=== PATIENT | female | born 1935 | race Caucasian/White ===

== ENCOUNTER 2017-02-08 07:02 | Inpatient (IN) | payer OTHER ==
[~2017-02-08] VITALS: Ht 170.2 cm; Wt 81.6 kg
--- NOTE | ~2017-02-08 | EKG ---
[address] [place] [address] ELECTROCARDIOGRAM REPORT Name: JOAQUINA TERRAZAS Room #: [facility] Deangelo#: [id number] Admission: 02/08/17 Attend Phys: Discharge: Date of : 39 Report #: [id number] THIS REPORT FOR: //name// [facility] ED Test Date: 2017-02-08 Test Time: 07:22:38 Pat Name: JOAQUINA TERRAZAS Department: Room: Gender: F Software Quality Analyst: CLAUDETTE : 1935 Requested By: Rachna Morrell Order Number: [id number] MD: Ronal Cowart Measurements Intervals [place] Rate: 66 P: 72 SC: 164 QRS: 0 QRSD: 94 T: 35 QT: 436 QTc: 457 Interpretive Statements Sinus rhythm Atrial premature complex Nonspecific ST and T wave abnormality Compared to ECG 10/04/2006 01:06:06 Atrial premature complex(es) now present Premature ventricular complexes no longer present Electronically Signed On 02-08-2017 8:06:38 CDT by Ronal Cowart [email or web address] <ELECTRONICALLY SIGNED> By: Ronal Cowart MD, [facility] 02/08/1706 1 1 Ronal Cowart MD, [facility] /EPI
[~2017-02-08 07:02] MED LIST: ASPIRIN325 PO; FISH OIL 1,001000 M2 PO; LIPITOR 20 MG T20 M1 PO; MACROBID 100 M100 M1 PO; PHENERGAN 25 MG25 M1 PO; TOPROL XL100 MG PO; TUMS PO
[2017-02-08 07:04] VITALS: BP 117/45
[2017-02-08] MEDS ORDERED: NORVASC5 MG PO (07:22)
[2017-02-08] MEDS ORDERED: ASPIR 8181 MG PO (07:22)
[2017-02-08] MEDS ORDERED: LEVOTHYROXIN0.075 MG PO (07:23)
[2017-02-08] MEDS ORDERED: TOPROL XL25 MG PO (07:24)
[2017-02-08 07:30] LABS: ABSOLUTE NEUTROPHILS 9.8 thou/uL (1.4-8.2); BASOPHILS 0.4 % (0.0-2.0); EOSINOPHILS 0.4 % (0.0-3.0); HEMATOCRIT 37.4 % (37.0-47.0); HEMOGLOBIN 12.2 gm/dL (12.0-15.0); LYMPHOCYTES 14.7 % (24.0-44.0); MCHC 32.6 g/dL (28.0-37.0); MCV 94.9 fL (80.0-100.0); MONOCYTES 6.5 % (1.0-8.0); PLATELET COUNT 220 thou/uL (150-400); RBC 3.94 mil/uL (4.20-5.00); RDW 13.8 % (10.5-14.5); WBC 12.5 thou/uL (4.0-11.0)
[2017-02-08 07:31] LABS: MANUAL DIFF NO
[2017-02-08 07:39] LABS: CALCIUM 9.1 mg/dL (8.5-10.1); CREATININE 1.1 mg/dL (0.6-1.0); POTASSIUM 4.8 mmol/L (3.5-5.1)
[2017-02-08 07:43] LABS: DIRECT BILIRUBIN 0.1 mg/dL (<0.1-0.3); TOTAL BILIRUBIN 0.3 mg/dL (<0.1-1.0); TOTAL PROTEIN 6.5 g/dL (6.4-8.2)
[2017-02-08 07:52] LABS: APTT 20.9 Seconds (24.5-32.8); PROTIME 10.6 Seconds (9.3-11.4)
[2017-02-08 09:56] VITALS: BP 124/46
[2017-02-08 10:51] VITALS: BP 115/57
[2017-02-08 11:48] LABS: HEMATOCRIT 36.2 % (37.0-47.0)
[2017-02-08 18:15] VITALS: BP 130/54
[2017-02-08 19:15] VITALS: BP 111/55
[2017-02-08 20:11] LABS: URINE BILIRUBIN NEGATIVE (Negative); URINE BLOOD NEGATIVE (Negative); URINE COLOR YELLOW; URINE GLUCOSE-RANDOM* NEGATIVE (Negative); URINE KETONES NEGATIVE (Negative); URINE LEUKOCYTES-REFLEX NEGATIVE (Negative); URINE PROTEIN (DIPSTICK) NEGATIVE (Negative); URINE UROBILINOGEN 0.2 E.U./dl (0.2-1.0)
[2017-02-09 04:05] VITALS: BP 120/53
[2017-02-09 06:36] LABS: ABSOLUTE NEUTROPHILS 4.9 thou/uL (1.4-8.2); BASOPHILS 0.6 % (0.0-2.0); EOSINOPHILS 0.8 % (0.0-3.0); HEMATOCRIT 30.2 % (37.0-47.0); HEMOGLOBIN 10.1 gm/dL (12.0-15.0); LYMPHOCYTES 29.7 % (24.0-44.0); MCH 31.7 pg (26.0-34.0); MCHC 33.5 g/dL (28.0-37.0); MCV 94.4 fL (80.0-100.0); MONOCYTES 5.8 % (1.0-8.0); PLATELET COUNT 165 thou/uL (150-400); POLYS 63.1 % (36.0-66.0); RDW 13.4 % (10.5-14.5); WBC 7.8 thou/uL (4.0-11.0)
[2017-02-09 06:40] LABS: MANUAL DIFF NO
[2017-02-09 06:46] LABS: CALCIUM 8.8 mg/dL (8.5-10.1); POTASSIUM 4.2 mmol/L (3.5-5.1)
[2017-02-09 08:56] VITALS: BP 135/57
[2017-02-09 16:14] VITALS: BP 133/44
[2017-02-09 16:38] LABS: HEMATOCRIT 28.1 % (37.0-47.0); HEMOGLOBIN 9.4 gm/dL (12.0-15.0)
[2017-02-09 19:22] VITALS: BP 129/52
[2017-02-10 04:20] LABS: HEMATOCRIT 26.4 % (37.0-47.0); HEMOGLOBIN 9.1 gm/dL (12.0-15.0)
[2017-02-10 04:53] VITALS: BP 145/71
[2017-02-10 07:29] VITALS: BP 130/56
[2017-02-10 15:31] VITALS: BP 120/43
[2017-02-10 20:09] VITALS: BP 147/61
[2017-02-11 03:00] VITALS: BP 148/53
[2017-02-11 07:19] VITALS: BP 134/54
[2017-02-11 12:45] LABS: HEMATOCRIT 29.2 % (37.0-47.0); HEMOGLOBIN 9.9 gm/dL (12.0-15.0); MCH 31.9 pg (26.0-34.0); MCHC 34.1 g/dL (28.0-37.0); MCV 93.6 fL (80.0-100.0); RBC 3.11 mil/uL (4.20-5.00); RDW 14.1 % (10.5-14.5); WBC 7.6 thou/uL (4.0-11.0)
[2017-02-11] MEDS ORDERED: NEXIUM40 MG PO (12:55)
[2017-02-11] MEDS ORDERED: DELSYM COU30 MG/5 M1 PO (12:59)
[2017-02-11 13:18] VITALS: BP 134/54
[2017-02-11 14:11] VITALS: BP 134/54
== END 2017-02-11 14:14 | disposition home or self-care (01) | DRG 378 ==
LOC: ER 07:02 → 4E 08:38 → EROBS 08:38 → 4E 09:57
PROVIDERS: Emergency Medicine; Internal Medicine; Internal Medicine Gastroenterology; Nurse Practitioner
PROC: 0DJ08ZZ Inspection of Upper Intestinal Tract, Via Natural or Artificial Opening Endoscopic (ICD-10-PCS; principal; 2017-02-08)
DX: K29.71 Gastritis, unspecified, with bleeding (principal); N17.9 Acute kidney failure, unspecified; D62 Acute posthemorrhagic anemia; E87.2 Acidosis; E44.1 Mild protein-calorie malnutrition; N39.0 Urinary tract infection, site not specified; I10 Essential (primary) hypertension; E78.5 Hyperlipidemia, unspecified; M19.90 Unspecified osteoarthritis, unspecified site; E86.0 Dehydration; I99.9 Unspecified disorder of circulatory system; E03.9 Hypothyroidism, unspecified; I25.10 Atherosclerotic heart disease of native coronary artery without angina pectoris; K25.9 Gastric ulcer, unspecified as acute or chronic, without hemorrhage or perforation; L71.9 Rosacea, unspecified; K29.70 Gastritis, unspecified, without bleeding; R91.1 Solitary pulmonary nodule; Z68.28 Body mass index [BMI] 28.0-28.9, adult; Z98.42 Cataract extraction status, left eye; Z90.710 Acquired absence of both cervix and uterus; Z88.0 Allergy status to penicillin; Z88.2 Allergy status to sulfonamides; Z83.3 Family history of diabetes mellitus; Z82.3 Family history of stroke; Z79.899 Other long term (current) drug therapy; Z98.41 Cataract extraction status, right eye
CPT/HCPCS: 10183; 62110; 62900; 70005

== ENCOUNTER → 2017-04-11 | Outpatient (CLI) | payer OTHER ==
[~2017-04-11] VITALS: Ht 170.2 cm; Wt 81.6 kg
[~2017-04-11] MED LIST changes: +ASPIR 8181 MG PO; +BREO ELLIPTA 11 EACH IH; +DELSYM COU30 MG/5 M1 PO; +LEVOTHYROXIN0.075 MG PO; +NEXIUM40 MG PO; +NORVASC5 MG PO; +TOPROL XL25 MG PO
--- NOTE | ~2017-04-11 | S ---
[facility] [place] [address] SURGICAL PATH RPT PROCEDURE Name: NELLY TERRAZAS Room #: [facility] Deangelo#: [id number] Admission: 04/11/17 Date of : 39 Discharge: Report #: [id number] Path Case #: [id number] PATHOLOGY REPORT COLLECTION DATE: 04/11/2017 RECEIVED DATE: 04/11/2017 SUBMITTING PHYS: Dr. Karsten Mena OTHER PHYS: Dr. 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 - Overlying surface epithelium showing reactive changes without any dysplasia. - Negative for Helicobacter pylori. (IUV:rljulian; 04/12/2017) COMMENT: Immunohistochemical stains are performed. Helicobacter pylori on block A1 negative AE1/AE3 on block A1 strongly reactive within the surface epithelium as well as the signet ring cells within the lamina propria. Co-review: Dr. Celine Craig. Findings are telephoned to Dr. Karsten eLbron's director biomedical engineering at 10:30 AM on 04/13/17. PATHOLOGIST: Laurel Bourne M.D. REPORT ELECTRONICALLY SIGNED BY: Laurel Bourne M.D. DATE/TIME: 04/13/2017 10:34 * * * * * * * * * * * * GROSS PATHOLOGY: Received in formalin labeled "Nlely Terrazas gastric BX," are two segments of frost soft tissue measuring 0.7 x 0.3 x 0.3 cm in aggregate dimensions and ranging from 0.3 to 0.4 cm in maximum dimension. The specimen is submitted entirely in cassette A1. (TSD; 04/11/2017) CLINICAL HISTORY: Pre-OP DX: Hx gastric ulcer [address] [address] SURGICAL PATH RPT PROCEDURE Name: NELLY TERRAZAS Room #: REG [facility]#: [id number] Admission: 04/11/17 Date of : 39 Discharge: Report #: [id number] Path Case #: [id number] Post-OP DX: Gastritis, hiatal hernia INITIAL CPT CODE(S): A; 27040, 33989, 52664 Professional services performed by [facility] at [address], [place] [address] Technical services performed by [facility] at [address] [place] [address], [facility] [address] [address]. [facility] [address] [address] PHONE: [phone] DIRECTOR: Jaciel Leal M.D. * * * END OF REPORT * * *
== END | disposition home or self-care (01) ==
LOC: GI 06:26
DX: C16.9 Malignant neoplasm of stomach, unspecified (principal); K44.9 Diaphragmatic hernia without obstruction or gangrene; E78.00 Pure hypercholesterolemia, unspecified; J45.909 Unspecified asthma, uncomplicated; K21.9 Gastro-esophageal reflux disease without esophagitis; Z88.2 Allergy status to sulfonamides; Z88.0 Allergy status to penicillin; Z90.710 Acquired absence of both cervix and uterus; Z98.890 Other specified postprocedural states; Z98.41 Cataract extraction status, right eye; Z98.42 Cataract extraction status, left eye
CPT/HCPCS: 62110; 62900